=== PATIENT | female | born 1995 | race Caucasian/White ===

== ENCOUNTER → 2016-08-08 | Outpatient (CLI) | payer BC, OTHER ==
--- NOTE | 2016-08-09 07:54 | US ---
EXAMINATION TYPE: US extremity nonvasc mass RT DATE OF EXAM: 08/08/2016 3:46 PM COMPARISON: NONE CLINICAL HISTORY: US. Right distal humerus mass seen on MR, painful lump right medial upper arm near antecubital fossa TECHNOLOGIST IMPRESSION: probable lymph node noted within patient's area of concern (right medial up per arm near antecubital fossa = 3.3 x 1.3 x 1.3cm appearing separate from brachial vessels IMPRESSION: Probable lymph node at the site of clinical concern. This lymph node is pathologically enlarged.
== END | disposition home or self-care (01) ==
LOC: RADUSWWP 15:27
PROVIDERS: ATTEND Family Medicine
DX: R59.0 Localized enlarged lymph nodes (principal)

== ENCOUNTER → 2016-09-14 | Outpatient (CLI) | payer BC ==
--- NOTE | 2016-09-14 09:25 | XR ---
EXAMINATION TYPE: XR KUB DATE OF EXAM: 09/14/2016 9:08 AM CLINICAL HISTORY: Right-sided kidney stone. TECHNIQUE: 2 supine KUB images of the abdomen are obtained COMPARISON: Abdominal x-ray October 20, 2014. CT abdomen and pelvis October 21, 2014. FINDINGS: No renal calculi are clearly seen bilaterally. There is overall nonobstructive bowel gas pattern. Visualized osseous structures are intact. 3 mm scl erotic focus over left sacrum corresponds to small benign bone island on CT. IMPRESSION: No definite nephrolithiasis. Small left side sacral bone island noted may mimic distal ureter calculu s.
== END | disposition home or self-care (01) ==
LOC: RADXRMAIN 08:54
PROVIDERS: ATTEND Urology
DX: N20.0 Calculus of kidney (principal); R31.9 Hematuria, unspecified
CPT/HCPCS: 74000

== ENCOUNTER 2016-11-13 22:09 | Inpatient (IN) | payer BC, MEDICAID ==
--- NOTE | 2016-11-13 23:48 | ED ---
Psych HPI - General Chief Complaint: Psychiatric Symptoms Stated Complaint: Mental Health Time Seen by Provider: 11/13/16 22:25 Source: patient, RN notes reviewed Mode of arrival: ambulatory Limitations: no limitations - History of Present Illness Initial Comments: 21-year-old female presents emergency Department with marked chief complaint suicidal depression. Patient states that she's having intermittent suicidal thoughts without plan. She will discuss this plan. Patient states she is very depressed because she broke up with her girlfriend. Patient states that 3 days ago she tried to take extra Zoloft states that she only took 5-6. Patient states she felt nauseated time. Patient denies any chest pain, shortness breath , nausea, vomiting, diarrhea constipation. Patient denies illicit drug use or alcohol use. - Related Data Home Medications Medication Instructions Recorded Confirmed Zoloft (Unknown Dose) 1 tab PO DAILY 11/13/16 11/13/16 Allergies Allergy/AdvReac Type Severity Reaction Status Date / Time lorazepam [From Ativan] Allergy Confusion Verified 11/13/16 22:38 Review of Systems ROS Statement: Those systems with pertinent positive or pertinent negative responses have been documented in the HPI. ROS Other: All systems not noted in ROS Statement are negative. Past Medical History Past Medical History: No Reported History History of Any Multi-Drug Resistant Organisms: None Reported Past Surgical History: No Surgical Hx Reported Additional Past Surgical History / Comment(s): kidney stones Past Psychological History: Anxiety, Depression, Panic Disorder, PTSD Smoking Status: Current every day smoker Past Alcohol Use History: None Reported Past Drug Use History: None Reported General Exam Limitations: no limitations General appearance: alert, in no apparent distress Head exam: Present: atraumatic, normocephalic, normal inspection Eye exam: Present: normal appearance, PERRL, EOMI. Absent: scleral icterus, conjunctival injection, periorbital swelling ENT exam: Present: normal exam, normal oropharynx, mucous membranes moist, TM's normal bilaterally, normal external ear exam Neck exam: Present: normal inspection, full ROM. Absent: tenderness, meningismus, lymphadenopathy Respiratory exam: Present: normal lung sounds bilaterally. Absent: respiratory distress, wheezes, rales, rhonchi, stridor Cardiovascular Exam: Present: regular rate, normal rhythm, normal heart sounds. Absent: systolic murmur, diastolic murmur, rubs, gallop, clicks GI/Abdominal exam: Present: soft, normal bowel sounds. Absent: distended, tenderness, guarding, rebound, rigid Neurological exam: Present: alert, oriented X3, CN II-XII intact Psychiatric exam: Present: depressed, flat affect Skin exam: Present: warm, dry, intact, normal color. Absent: rash Course Vital Signs 11/13/16 22:11 Temperature 98.1 F Pulse Rate 110 H Respiratory 18 Rate Blood Pressure 137/87 O2 Sat by Pulse 100 Oximetry Disposition Clinical Impression: Depression, Suicidal ideation Disposition: ADMITTED IP TO THIS HOSP
[2016-11-14] MEDS ORDERED: MAG HYDROX/AL HYDROX/SIMETH 30 ML CUP PO PRN (01:24)
[2016-11-14] MEDS ORDERED: ACETAMINOPHEN TAB 325 MG TAB PO PRN (01:36)
[2016-11-14] MEDS ORDERED: MAGNESIUM HYDROXIDE 2,400 MG/10 ML CUP PO PRN ×2 (01:38→01:41)
[2016-11-14 02:09] VITALS: BMI 20.7
[2016-11-14 02:57] LABS: Appearance,Urine Cloudy (Clear); Bacteria,Urine Many /hpf; Bilirubin,Urine Negative (Negative); Calcium Oxalate Crystals,Urine Few /hpf; Glucose,Urine (UA) Negative (Negative); Ketones,Urine 2+ (Negative); Leukocyte Esterase,Urine Small (Negative); Mucus,Urine Few /hpf; Nitrite,Urine Negative (Negative); Particle Count 14830; Protein,Urine Negative (Negative); RBC,Urine 1 /hpf (0-5); Specific Gravity,Urine 1.013 (1.001-1.035); Squamous Epithelial Cell,Urine 2 /hpf (0-4); UA Billing (MACRO vs. MICRO) MICRO; Urobilinogen,Urine <2.0 mg/dL (<2.0); WBC,Urine 5 /hpf (0-5)
[2016-11-14] MEDS ORDERED: QUEtiapine 25 MG TAB PO PRN (08:43)
--- NOTE | 2016-11-14 15:33 | P.HP ---
Psychiatric H&P - . H&P Date: 11/14/16 History & Physical: IDENTIFYING DATA: Ms. Horton is a 21-year-old single female who presented to the emergency room with complaints of increased depression and suicidal ideation since the breakup of relationship approximately 1 week prior to admission. HISTORY OF PRESENT ILLNESS: She stated that she was doing well until a sudden unexpected breakup of a long-term relationship. She stated that she and her girlfriend have beenogether about one and half years and on last her girlfriend abruptly ended the relationship. Jonelle denied that there was conflict in relationship and her girlfriend did not explain the reason for the breakup. Since the breakup she described increasing feelings depression, hopelessness and helplessness. She's been unable to sleep and spent most of her day in bed. On Sunday prior to admission she attempted to overdose by taking "10 to 12" Zoloft with the intent to end his life. She was surprised when she woke up the next day. On the day of admission she had planned to drive her car off a bridge in [facility]. While on the highway she called her mother who talked her out of her plan, drove to her and took her back to her mother's home. The plan was for her to stay with her mother until she recovers. However, she began talking about suicide and felt that she was unsafe and may act on her suicidal thoughts while she was at her mother's home. Her mother brought her to emergency room for admission. In the ER she told EPS nurse that if she were discharged from the hospital that she would kill herself. Prior to the breakup she denied generalized sense of anxiety presents throughout the today. She denied a history of elevated mood or sustained irritability consistent with law or hypomania. She denied a history of obsessions or compulsions. She denied psychotic symptoms such as auditory or visual hallucinations, ideas reference, thought insertion, thought broadcasting or thought control. PAST PSYCHIATRIC HISTORY: She was admitted to [facility] in September 2015 after the of her grandmother. She stated that she is very close with her grandmother and felt devastated following her grandmother's . She did not follow through with mental health treatment after discharge. She stated that she could not remember if she had been referred for outpatient treatment. PAST MEDICAL HISTORY: She has no history of major medical illnesses. ALLERGIES: Lorazepam. SUBSTANCE USE HISTORY: She denied use of alcohol or drugs. Her UDS was negative for drugs of abuse and her BAL was 0. FAMILY PSYCHIATRIC/SUBSTANCE USE HISTORY: She denied history of psychiatric or substance abuse problems. LEGAL HISTORY: She is no history of legal problems. SOCIAL HISTORY: She is born and raised by an intact family in [facility]. She has 1 sister. She graduated from high school and has worked in the restaurant industry since graduation. He is single and has no children. She is currently unemployed and a restaurant at [employer]. MENTAL STATUS EXAM: She presented as a depressed and tearful 21-year-old thin and pale female. She maintained eye contact and attended to the interview. She had started To use along her left forearm but no prominent physical abnormalities. She had a depressed facial expression. She was alert and oriented to person, place and time. She showed psychomotor retardation but no abnormal involuntary movements. Her speech was spontaneous with decreased rate, rhythm and volume. Her affect was depressed and not reactive. She describes suicidal ideation and wishes. She denied homicidal ideation. She expressed depressive cognitions including hopelessness, helplessness and worthlessness. She ruminated on the loss relationship but did not express phobias, ideas reference or paranoid ideation. Her thinking was abstract. Associations were coherent and logical. She denied hallucinations and did not appear to be responding to internal stimuli. Global impression of intellect is average. She is aware of her illness or need for mental health treatment.. STRENGTHS: Able housing, stable employment, good health, supportive family. WEAKNESSES: Loss of recent relationship IMPRESSION: She is a 21-year-old female presents with depression and suicidal ideation following a breakup of a long-term relationship. She has a history of depression and suicidal ideation from the of her grandmother in August 2015 resulting in a psychiatric hospitalization. She describes symptoms of depression including hopelessness, helplessness and worthlessness antidepressant for less than 2 weeks. She should be treated on an inpatient basis due to these continued suicidal ideation with a combination of psychopharmacology and multimodal therapy. She would benefit from individual therapy at discharge from hospital.. PRINCIPLE DIAGNOSIS: Adjustment disorder with depressed mood, rule out major depressive disorder RECOMMENDATION: Continue inpatient psychiatric hospitalization due to the suicide risk. Consult medicine for initial physical examination medical history. Seroquel 25 mg at bedtime when necessary for sleep. Resume Zoloft 100 mg daily. Encourage participation in therapeutic groups and activities. Refer for outpatient individual therapy after discharge. Evaluate clinical status response to treatment daily basis. Allergies Allergy/AdvReac Type Severity Reaction Status Date / Time lorazepam [From Ativan] Allergy Confusion Verified 11/14/16 02:40 Vital Signs Temp 99.4 F 11/14/16 02:01 Pulse 81 11/14/16 02:01 Resp 18 11/14/16 02:01 BP 113/67 11/14/16 02:01 Pulse Ox 97 11/14/16 02:01 Intake & Output 11/13/16 11/14/16 11/14/16 18:59 06:59 18:59 Weight 56.387 kg Laboratory Last Values Urine Color Yellow 11/14/16 01:20 Urine Appearance Cloudy (Clear) H 11/14/16 01:20 Urine pH 6.0 (5.0-8.0) 11/14/16 01:20 Ur Specific [place] 1.013 (1.001-1.035) 11/14/16 01:20 Urine Protein Negative (Negative) 11/14/16 01:20 Urine Glucose (UA) Negative (Negative) 11/14/16 01:20 Urine Ketones 2+ (Negative) H 11/14/16 01:20 Urine Blood Negative (Negative) 11/14/16 01:20 Urine Nitrite Negative (Negative) 11/14/16 01:20 Urine Bilirubin Negative (Negative) 11/14/16 01:20 Urine Urobilinogen <2.0 mg/dL (<2.0) 11/14/16 01:20 Ur Leukocyte Esterase Small (Negative) H 11/14/16 01:20 Urine RBC 1 /hpf (0-5) 11/14/16 01:20 Urine WBC 5 /hpf (0-5) 11/14/16 01:20 Ur Squamous Epith Cells 2 /hpf (0-4) 11/14/16 01:20 Calcium Oxalate Crystal Few /hpf (None) H 11/14/16 01:20 Urine Bacteria Many /hpf (None) H 11/14/16 01:20 Urine Mucus Few /hpf (None) H 11/14/16 01:20 Urine HCG, Qual Not Detected (Not Detectd) 11/14/16 01:20 Urine Opiates Screen Not Detected (NotDetected) 11/14/16 01:20 Ur Oxycodone Screen Not Detected (NotDetected) 11/14/16 01:20 Urine Methadone Screen Not Detected (NotDetected) 11/14/16 01:20 Ur Propoxyphene Screen Not Detected (NotDetected) 11/14/16 01:20 Ur Barbiturates Screen Not Detected (NotDetected) 11/14/16 01:20 U Tricyclic Antidepress Not Detected (NotDetected) 11/14/16 01:20 Ur Phencyclidine Scrn Not Detected (NotDetected) 11/14/16 01:20 Ur Amphetamines Screen Not Detected (NotDetected) 11/14/16 01:20 U Methamphetamines Scrn Not Detected (NotDetected) 11/14/16 01:20 U Benzodiazepines Scrn Not Detected (NotDetected) 11/14/16 01:20 Urine Cocaine Screen Not Detected (NotDetected) 11/14/16 01:20 U Marijuana (THC) Screen Not Detected (NotDetected) 11/14/16 01:20 11/14/16 07:58 11/14/16 08:31 11/14/16 15:30
[2016-11-14 16:31] VITALS: RESP 16
[2016-11-15 06:36] VITALS: BP 87/44; PULSE 66; TEMP 98.2
[2016-11-15] MEDS ORDERED: SERTRALINE 100 MG TAB PO SCH (09:00)
[2016-11-15 11:00] LABS: Basophils % (A) 1 %; CHCM 34.5; Eosinophils # (A) 0.1 k/uL (0-0.7); Eosinophils % (A) 2 %; HCT 41.8 % (34.0-46.0); HDW 2.68; HGB 14.3 gm/dL (11.4-16.0); Luc # (Auto) 0.17; Luc % (Auto) 2; Lymphocytes # (A) 2.2 k/uL (1.0-4.8); Lymphocytes % (A) 28 %; MCH 30.8 pg (25.0-35.0); MCHC 34.2 g/dL (31.0-37.0); MCV 90.3 fL (80.0-100.0); Mean Platelet Volume 6.8; Monocytes # (A) 0.3 k/uL (0-1.0); Monocytes % (A) 4 %; Neutrophils # (A) 4.9 k/uL (1.3-7.7); Neutrophils % (A) 64 %; RBC 4.63 m/uL (3.80-5.40); RDW 12.6 % (11.5-15.5); WBC 7.6 k/uL (4.0-11.0); WBC (Perox) 8.11
--- NOTE | 2016-11-15 11:24 | CONS ---
DATE OF CONSULTATION: This is a 21-year-old white female who was admitted from the emergency room with acute depression over her break-up of her and her girlfriend along with suicidal idealization. She has had a long-standing history of depression and has been on Zoloft in the past. She was admitted to [facility] for severe depression in September 2015 after the of her grandmother and that she was very close to. At that time she was discharged but she did not follow through with mental health team after discharge. She stated that there was a probable transportation problem which was noted into the chart. At this period of time before she was admitted, she took 10 to 12 Zoloft that night and she was attempted to overdose and she was quite surprised when she woke up that day. On the day of admission, she was planning to drive her car off bridge in [place]. She was talking to her mother on the way who talked her out of it and she came to the emergency room and at that period of time she was admitted. She has had a history of acute pyelonephritis and had a ureter splint after she had a stone in the ureter and this was back in this last March of 2016. She had been treated with Levaquin in the hospital on an outpatient basis and she has responded very well. REVIEW OF SYSTEMS: CARDIOPULMONARY: Shortness of breath, chest pain, orthopnea, paroxysmal nocturnal dyspnea. GI: No hematemesis, melena, hematochezia. : Urination has been fine. NEUROMUSCULAR: She has not had any back pain or any generalized headaches. NEUROVASCULAR: She denies any loss of consciousness, seizure disorder. Has not been any syncopal episodes and no vertigo. INTEGUMENTARY: Has been negative. Her surgical history is basically negative except for stent placement and removal. The surgical history is just as we said about the kidney stones. Other than, it has been negative. SOCIAL HISTORY: She is a smoker, occasional drinker. She does not take any drugs. She had a strong relationship for 2 or 3 years, has just recently ended. She has had a past medical history of anxiety, depression, panic disorder. FAMILY HISTORY: She has a mother and father with diabetes and both with hypertension. Her sexual persuasion is presently she is a lesbian. 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 She ended her career when she obtained a relationship with a young lady and she actually moved out of the house before even graduating from high school. LAB WORK: There is no significant lab work present. PHYSICAL EXAMINATION: Her vital signs are stable with a blood pressure of 105/64, heart rates is in the 70s, respiratory rate is 16. Temperature is 97.7. EYES: Pupils are equal, round, react to light and accommodation. ENT: Showed tympanic membranes and pharynx to be negative. Neck is supple with midline trachea. Chest is essentially clear to auscultation. HEART: Sinus rhythm with no murmur. ABDOMEN: Soft, nontender, with no organomegaly. No abrasions, no unusual scratches or lacerations. Lower extremities have good palpable pulses. ASSESSMENT: 1. Suicidal idealization, no major depressive disorder, situation. 2. History of kidney stones. PLAN: I will follow her accordingly. I do not see any lab that was completed as far as CBC and complete metabolic profile, that has been ordered. She does have a history of also nonspecific asthma x1. It is watched but no premedication has been added.
[2016-11-15 11:27] LABS: ALT 41 U/L (9-52); AST 25 U/L (14-36); Alkaline Phosphatase 41 U/L (38-126); Anion Gap 13 mmol/L; Blood Urea Nitrogen 9 mg/dL (7-17); Calcium 9.7 mg/dL (8.4-10.2); Carbon Dioxide 21 mmol/L (22-30); Chloride 108 mmol/L (98-107); Glucose 76 mg/dL (74-99); Non-African American GFR(MDRD) >60 (>60 ml/min/1.73 sqM); Potassium 3.9 mmol/L (3.5-5.1); Sodium 142 mmol/L (137-145); Total Bilirubin 0.7 mg/dL (0.2-1.3)
--- NOTE | 2016-11-15 14:36 | P.DS ---
Providers Date of admission: 11/14/16 01:20 Attending physician: Cisco Miller MD Consults: 11/14/16 07:46 Consult Physician Routine Consulting Provider: Raymon Espino Consult Reason/Comments: medical management Do you want consulting provider notified?: Yes, Notify in am Primary care physician: Raymon Espino - Discharge Diagnosis(es) (1) Adjustment disorder with disturbance of emotion Current Visit: Yes Status: Acute Priority: Medium (2) Partner relationship problem Current Visit: Yes Status: Acute Priority: High (3) Suicidal ideation Current Visit: Yes Status: Resolved Priority: Low Hospital Course: Ms. Horton is a 21-year-old single female who presented to the emergency room with complaints of increased depression and suicidal ideation since the breakup of relationship approximately 1 week prior to admission. She stated that she was doing well until a sudden unexpected breakup of a long- term relationship. She stated that she and her girlfriend have beenogether about one and half years and on last her girlfriend abruptly ended the relationship. Jonelle denied that there was conflict in relationship and her girlfriend did not explain the reason for the breakup. Since the breakup she described increasing feelings depression, hopelessness and helplessness. She's been unable to sleep and spent most of her day in bed. On Sunday prior to admission she attempted to overdose by taking "10 to 12" Zoloft with the intent to end his life. She was surprised when she woke up the next day. On the day of admission she had planned to drive her car off a bridge in [facility]. While on the highway she called her mother who talked her out of her plan, drove to her and took her back to her mother's home. The plan was for her to stay with her mother until she recovers. However, she began talking about suicide and felt that she was unsafe and may act on her suicidal thoughts while she was at her mother's home. Her mother brought her to emergency room for admission. In the ER she told EPS nurse that if she were discharged from the hospital that she would kill herself. Prior to the breakup she denied generalized sense of anxiety presents throughout the today. She denied a history of elevated mood or sustained irritability consistent with law or hypomania. She denied a history of obsessions or compulsions. She denied psychotic symptoms such as auditory or visual hallucinations, ideas reference, thought insertion, thought broadcasting or thought control. She was admitted to [facility] in September 2015 after the of her grandmother. She stated that she is very close with her grandmother and felt devastated following her grandmother's . She did not follow through with mental health treatment after discharge. She stated that she could not remember if she had been referred for outpatient treatment. We admitted her to the psychiatric unit under care of this typewriters functional tester. We provided a biopsychosocial assessment. The educational consultant completed the initial physical exam and medical history and diagnosis history of kidney stones. We increased her Zoloft 100 mg daily and prescribed Seroquel 25 mg at bedtime when necessary for sleep. On the second day of admission she reported a marked improvement in her mood. She spoke with her mother on her telephone and agreed to live with her mother temporarily. We talked about the importance of individual therapy distress difficulty has with managing her emotions. She agreed to referral for outpatient individual therapy. On the day of discharge she denied feeling persistently depressed, sad or blue. She denied feeling helpless about the future. She denied having little interest or pleasure in doing things. She reported an improvement in her sleep. She denied having suicidal thoughts or wishes. Plan - Discharge Summary New Discharge Prescriptions: QUEtiapine [SEROquel] 25 mg PO HS PRN 30 Days PRN Reason: Insomnia Sertraline [Zoloft] 100 mg PO DAILY 30 Days Discharge Medication List QUEtiapine [SEROquel] 25 mg PO HS PRN 30 Days 11/15/16 [Rx] Sertraline [Zoloft] 100 mg PO DAILY 30 Days 11/15/16 [Rx] Follow up Appointment(s)/Referral(s): Psychological,List [Other] - 11/22/16 1:30 pm (please arrive at 12;45 for paperwork appointment at 1:00) Raymon Espino MD [Primary Care Provider] - 1-2 days Discharge Disposition: HOME SELF-CARE
== END 2016-11-15 15:16 | disposition home or self-care (01) | DRG 881 ==
LOC: EC 22:09 → 3MHU 11-14 01:20
PROVIDERS: ADMIT Psychiatry & Neurology Psychiatry; ATTEND Psychiatry & Neurology Psychiatry
DX: F43.21 Adjustment disorder with depressed mood (principal); R45.851 Suicidal ideations; F41.0 Panic disorder [episodic paroxysmal anxiety]; F17.200 Nicotine dependence, unspecified, uncomplicated; Z79.899 Other long term (current) drug therapy; Z82.49 Family history of ischemic heart disease and other diseases of the circulatory system; Z83.3 Family history of diabetes mellitus; Z87.442 Personal history of urinary calculi; F43.10 Post-traumatic stress disorder, unspecified; T43.222D Poisoning by selective serotonin reuptake inhibitors, intentional self-harm, subsequent encounter
CPT/HCPCS: 80053; 80306; 81001; 81025; 82075; 84443; 85025; 99285

== ENCOUNTER 2017-10-30 20:22 | Emergency (ER) | payer BC, OTHER ==
[2017-10-30 20:33] VITALS: BP 101/67; PULSE 100; RESP 18; TEMP 98
--- NOTE | 2017-10-30 20:57 | ED ---
Upper Extremity HPI - General Chief Complaint: Extremity Injury, Upper Stated Complaint: hand injury Time Seen by Provider: 10/30/17 20:32 Source: patient, RN notes reviewed Mode of arrival: ambulatory Limitations: no limitations - History of Present Illness Initial Comments: 22-year-old female presented emergency Department chief complaint of right hand injury. Patient states she punched a wall today. Patient had prior right hand fracture she is [id number]. Patient complains of pain and swelling around her third MCP region. Patient denies any wrist pain or any other complaints. - Related Data Previous Rx's Medication Instructions Recorded Ibuprofen [Motrin] 600 mg PO Q8HR PRN #30 tab 10/30/17 Allergies Allergy/AdvReac Type Severity Reaction Status Date / Time lorazepam [From Ativan] AdvReac Confusion Verified 10/30/17 20:30 Review of Systems ROS Statement: Those systems with pertinent positive or pertinent negative responses have been documented in the HPI. ROS Other: All systems not noted in ROS Statement are negative. Past Medical History Past Medical History: No Reported History History of Any Multi-Drug Resistant Organisms: None Reported Past Surgical History: No Surgical Hx Reported Additional Past Surgical History / Comment(s): kidney stones Past Psychological History: Anxiety, Depression, Panic Disorder, PTSD Smoking Status: Current every day smoker Past Alcohol Use History: None Reported Past Drug Use History: Marijuana General Exam Limitations: no limitations General appearance: alert, in no apparent distress Head exam: Present: atraumatic, normocephalic, normal inspection Respiratory exam: Present: normal lung sounds bilaterally. Absent: respiratory distress, wheezes, rales, rhonchi, stridor Cardiovascular Exam: Present: regular rate, normal rhythm, normal heart sounds. Absent: systolic murmur, diastolic murmur, rubs, gallop, clicks Extremities exam: Present: other (Right hand there is some swelling on the third MCP region tenderness with palpation patient has full range of motion neurovascular intact there is no wrist tenderness.) Course Vital Signs 10/30/17 20:30 Temperature 98 F Pulse Rate 100 Respiratory 18 Rate Blood Pressure 101/67 O2 Sat by Pulse 98 Oximetry Medical Decision Making - Medical Decision Making 22-year-old female presented for right hand injury. X-rays reviewed no acute fracture. Patient is right-hand Disposition Clinical Impression: Contusion of right hand Disposition: HOME SELF-CARE Condition: Stable Instructions: Contusion in Adults (ED) Additional Instructions: Please return to the Emergency Department if symptoms worsen or any other concerns. Prescriptions: Ibuprofen [Motrin] 600 mg PO Q8HR PRN #30 tab PRN Reason: Pain Referrals: None,Stated [Primary Care Provider] - 1-2 days Time of Disposition: 20:57
--- NOTE | 2017-10-30 21:28 | XR ---
EXAMINATION TYPE: XR hand complete RT DATE OF EXAM: 10/30/2017 COMPARISON: NONE HISTORY: Punching injury. Pain. TECHNIQUE: 3 views FINDINGS: Metacarpals are intact. I see no fracture nor dislocation. Joint spaces are normal. IMPRESSION: Negative right hand exam.
== END 2017-10-30 21:02 | disposition home or self-care (01) ==
LOC: EC 20:22
DX: S60.221A Contusion of right hand, initial encounter (principal); F17.200 Nicotine dependence, unspecified, uncomplicated; Z88.8 Allergy status to other drugs, medicaments and biological substances; W22.01XA Walked into wall, initial encounter
CPT/HCPCS: 99283